=== PATIENT | female | born 1990 | race Caucasian/White ===

== ENCOUNTER → 2021-09-11 | Outpatient (CLI) | payer BC ==
[~2021-09-11] MED LIST: PROHANCE 279.3MG/ML 15ML VIAL As Ordered ONE
--- NOTE | 2021-09-11 15:50 | REP ---
INDICATION: [facility]YA[facility] BREAST FM H/O NEOPLASM OF BREAST. COMPARISON: None. TECHNIQUE: Three [place] MRI imaging was performed with a dedicated breast coil. Axial, coronal, and sagittal T1 and T2 weighted scans were obtained with and without fat saturation in the usual fashion. The study includes dynamically acquired post gadolinium-enhanced imaging with image subtraction. Maximum intensity projection and multi planar reformation imaging is included as well. This study is interpreted with the aid of [employer], an FDA approved computer aided detection (CAD) software program, on a dedicated breast MRI workstation. The gadolinium enhancement dose is 14 mL of intravenous ProHance. FINDINGS: There is an extreme pattern of parenchymal tissue bilaterally there is no evidence of axillary adenopathy. No significant cystic changes seen. There is moderate background parenchymal enhancement. There are dilated ducts in the left retroareolar region. There is no suspicious enhancing mass or morphologic abnormality. IMPRESSION: BI-RADS category 2, benign bilateral breast MRI. There are dilated ducts in the left retroareolar region. There is no suspicious enhancing mass or morphologic abnormality. <Electronically signed by David Farnsworth > 09/11/21 2931
== END ==
LOC: M RAD 12:59
PROVIDERS: ATTEND Internal Medicine Hematology & Oncology
DX: Z80.3 Family history of malignant neoplasm of breast (principal)
CPT/HCPCS: A9576; C8908

== ENCOUNTER → 2022-11-08 | Outpatient (CLI) | payer BC | LOC: M RAD 12:27 | PROVIDERS: ATTEND Internal Medicine Hematology & Oncology | DX: Z12.31 Encounter for screening mammogram for malignant neoplasm of breast (principal); Z80.3 Family history of malignant neoplasm of breast | CPT/HCPCS: A9576; C8908 ==